=== PATIENT | female | born 1970 | race Caucasian/White ===

== ENCOUNTER 2022-04-04 09:57 | Emergency (ER) | payer SELFPAY ==
[2022-04-04 10:16] VITALS: BP 184/107; PULSE 74; TEMP 36.8; O2SAT 94; BMI 41.0
--- NOTE | 2022-04-04 10:28 | W.ED.DENTAL ---
HPI - Dental/Oral General: Chief complaint: Dental/Oral Stated complaint: Face swollen, tooth pain Time Seen by Provider: 04/04/22 10:10 History of Present Illness: Patient is a 51-year-old female comes to the ED with dental pain. Symptoms started approximately 3 days ago. Patient says she started having dental pain in the upper and lower back right molars. She is currently moving back home to [place] and is going to get set up with a dentist there. She rates her pain currently an 8 out of 10. Today she woke up and the right side of her face was swollen. Denies any fevers. Associated symptoms: Denies fever(s) or odynophagia Review of Systems Const: Denies: fever(s), chills or fatigue Eyes: Denies: change in vision or eye discomfort ENMT: Reports: dental pain (upper and lower back right molars); Denies: throat pain, odynophagia, nasal discharge or nasal congestion Card: Denies: chest pain, palpitations, edema, swelling of feet/ankles, dyspnea on exertion or orthopnea Resp: Denies: dyspnea, productive cough or non-productive cough GI: Denies: abdominal pain, nausea, vomiting, diarrhea, constipation or hematochezia : Denies: flank pain, dysuria or hematuria Musc: Denies: neck pain, back pain or extremity swelling Skin/Breast: Denies: rash or new lesions Neuro: Denies: headache(s), numbness in extremities or weakness in extremities PFS ED PFSH: Medical History Diabetes Hypertension No pertinent family history Physical Exam Const: COMMON NORMALS: no acute distress, patient oriented x3 and alert GENERAL APPEARANCE: cooperative and comfortable HENMT: COMMON NORMALS: normocephalic HEAD & SCALP: normocephalic FACE & SINUS: edema on the right maxilla MOUTH: Normal oral and palatal mucosa present TEETH & GINGIVA: Yes abnormal tooth and associated gingiva upper right third molar tender and other (Dental decay), Yes caries and Yes poor dentition THROAT: posterior oropharynx normal and uvula midline Eye: COMMON NORMALS: Equal, round and reactive pupils present and conjunctivae normal CONJUNCTIVA: Yes conjunctivae normal PUPIL: Yes Equal, round and reactive pupils present Neck/C-Spine: COMMON NORMALS: supple GENERAL: Yes normal visual inspection Resp: COMMON NORMALS: normal respiratory effort, No retractions, No use of accessory muscles and clear to auscultation bilaterally AUSCULTATION: clear to auscultation bilaterally Cardio: COMMON NORMALS: regular rate, regular rhythm, S1 normal heart sound present, S2 normal heart sound present, No gallops present (Cardio), No clicks present (Cardio), No murmurs present (Cardio) and Peripheral pulses 2+ throughout RATE: regular rate RHYTHM: regular rhythm HEART SOUNDS: S1 normal heart sound present and S2 normal heart sound present PERIPHERAL PULSES: Peripheral pulses 2+ throughout GI: COMMON NORMALS: Normal to inspection, nondistended, normoactive bowel sounds present, Soft to palpation, non-tender and no masses PALPATION: Yes Soft to palpation : COMMON NORMALS: Yes no CVA tenderness BLADDER/KIDNEY EXAM: Yes no CVA tenderness Back/Pelvis: COMMON NORMALS: no CVA tenderness Extremity: COMMON NORMALS: normal to inspection Neuro: COMMON NORMALS: patient oriented x3 and moves all extremities SENSORIUM/ORIENTATION: Yes alert Skin: GENERAL SKIN EXAM: dry skin Course Vital Signs: Vital signs: Vital Signs Temperature 98.3 F 04/04/22 10:16 Pulse Rate 74 04/04/22 10:32 Respiratory Rate 18 04/04/22 10:32 Blood Pressure 184/107 04/04/22 10:32 Pulse Oximetry 94 04/04/22 10:32 [facility] - Dental/Oral Medical Decision Making Patient is a 51-year-old female comes to the ED with dental pain. Patient is currently moving to [place] and in the process of getting set up with a dentist there. She has extensive dental decay in both her upper and lower back right molars. She also has some right maxillary facial swelling. Vitals are stable. Patient was given dose of clindamycin here in the ED along with a pain med. Patient diagnosed with dental caries and she was stable for discharge home. Sent home with a prescription for clindamycin and Celebrex for pain. Return to ED precautions given. Follow-up with dentist in [place] as soon as possible. Patient understood and agreed with plan. Discharge Plan Discharge Patient Disposition: Home Clinical Impression: Pain due to dental caries Condition: Stable Prescriptions: New clindamycin HCl 150 mg capsule 300 mg PO QID 10 Days Qty: 80 0RF Celebrex 100 mg capsule 100 mg PO BID PRN (Reason: pain) Qty: 30 0RF Discharge Orders: Discharge ED (Routine); Ordered 04/04/22 Ordered By: Fausto Coy Discharge Diet: Regular Discharge Activity: Increase activity as tolerated Patient Instructions: Dental Caries (Cavities) Activity Restrictions/Additional Instructions: Follow-up with dentist as soon as possible to get dental issue evaluated. Take medications as prescribed. Return to the ER or your medical provider if condition worsens. Please read and understand discharge instructions. Thank you for choosing [facility] for your healthcare needs today. Please realize this is an emergency room and that we are providing you with a medical screening exam and this may not be complete and all inclusive of all the testing and or work up that you may need to determine your ailment or severity of your illness. It is very important that you follow up as instructed or that you return to the Emergency Department should you have concerns or if your condition changes or worsens in any way. Coding Level of Care Code ED Car Inspector for Jarrod Dowd Exam Comprehensive
[2022-04-04 10:32] VITALS: BP 184/107; PULSE 74; RESP 18; O2SAT 94
[2022-04-04] MEDS: HYDROcodone-acetaminophen 7.5-325 mg Tablet 1 TAB PO (10:41)
[2022-04-04] MEDS: clindamycin 150 mg Capsule 300 MG PO (10:41)
[2022-04-04 11:09] VITALS: BP 170/89; PULSE 65; RESP 14; O2SAT 95
== END 2022-04-04 11:07 | disposition home or self-care (01) ==
PROVIDERS: Emergency Provider Physician Assistant
DX: K02.9 Dental caries, unspecified (principal)
CPT/HCPCS: 99283